=== PATIENT | male | born 1950 | race Caucasian/White ===

== ENCOUNTER 2021-11-20 12:48 | Outpatient (CLI) | payer OTHER ==
--- NOTE | 2021-11-20 16:04 | XRAY Report ---
PROCEDURE: Shoulder 3 View LT INDICATIONS: ADHESIVE CAPSULITIS OF LEFT SHOULDER TECHNIQUE: 3 views of the shoulder were acquired. COMPARISON: None. FINDINGS: Bones: No acute fractures or dislocations. No suspicious bony lesions. Visualized ribs appear inta ct. Moderate degenerative changes are seen in the acromioclavicular joint. Soft tissues: No suspicious soft tissue calcifications. IMPRESSION: Moderate acromioclavicular osteoarthrosis. No acute osseous abnormality. If symptoms persist or there is continued clinical concern, further evaluation with MRI or CT may be helpful. Reviewed by: Juan Miguel Isabel MD on 11/20/2021 4:03 PM PDT Approved by: Juan Miguel Isabel MD on 11/20/2021 4:03 PM PDT Station ID: [id number]
== END 2021-11-20 12:49 | disposition home or self-care (01) ==
LOC: DI 12:48
PROVIDERS: ATTEND Internal Medicine
DX: M75.02 Adhesive capsulitis of left shoulder (principal); M19.012 Primary osteoarthritis, left shoulder